=== PATIENT | female | born 1960 | race American Indian/Alaskan Native ===

== ENCOUNTER 2022-03-03 11:39 | Emergency (ER) | payer OTHER ==
[2022-03-03] MEDS ORDERED: SODIUM CHLORIDE 0.9% 1000 ML 1,000 ML ONE (11:45)
[2022-03-03] MEDS ORDERED: diazePAM 10 MG/2 ML SYRINGE ONE (11:55)
[2022-03-03] MEDS ORDERED: SODIUM CHLORIDE 0.9% 1000 ML 1,000 ML IV ONE (12:02)
[2022-03-03] MEDS ORDERED: diazePAM 10 MG/2 ML SYRINGE IV ONE ×3 (12:02→14:00)
--- NOTE | 2022-03-03 12:18 | Emergency Department Report ---
ED General Adult HPI - General Stated complaint: SYNCOPAL EPISODE Time Seen by Provider: 03/03/22 11:44 Source: patient, RN/MD Mode of arrival: Ambulatory Limitations: Other - History of Present Illness Initial comments: 61-year-old female the past medical is a hypertension presents to the hospital after having a near syncopal/dizzy episode with a grief reaction. Patient with here in the ER as a guest and was informed of her 63-year-old brother is in the ED who arrived to the department active cardiopulmonary arrest. Patient was alert without any physical discomfort. Nurse reports that she started to hyperventilate and had a near syncopal episode. Her systolic blood pressure after being placed on a monitor was in the 50s. Patient is awake, varying between crying, hyperventilating, and crying. She will not answer my direct questions. IV lines placed and IV fluids initiated with rapid resolution and hypotension. Valium then provided. Patient did not take her blood pressure medication today - Related Data Home Medications Medication Instructions Recorded Confirmed Last Taken Losartan [Cozaar] 50 mg PO QDAY 03/03/22 03/03/22 Unknown hydroCHLOROthiazide [HCTZ] 25 mg PO QDAY 03/03/22 03/03/22 Unknown Allergies Allergy/AdvReac Type Severity Reaction Status Date / Time No Known Allergies Allergy Unverified 03/03/22 12:22 ED Review of Systems ROS: Stated complaint: SYNCOPAL EPISODE Other details as noted in HPI Comment: All other systems reviewed and negative ED Past Medical Hx - Medications Home Medications: Home Medications Medication Instructions Recorded Confirmed Last Taken Type Losartan [Cozaar] 50 mg PO QDAY 03/03/22 03/03/22 Unknown History hydroCHLOROthiazide [HCTZ] 25 mg PO QDAY 03/03/22 03/03/22 Unknown History ED Physical Exam - Other Other exam information: General: No acute distress Head: Atraumatic Eyes: normal appearance ENT: Moist mucous membranes Neck: Normal appearance, no midline tenderness Chest: Clear to auscultation bilaterally, hyperventilate CV: Regular rate and rhythm Abdomen: Soft, normal bowel sounds, nontender, nondistended, no rebound or guarding Back: Normal inspection Extremity: Normal inspection, full range of motion Neuro: Alert , no facial asymmetry, speech clear, no gross motor sensory deficit Psych: Crying, praying, hysterical Skin: No rash ED Course Vital Signs 03/03/22 03/03/22 03/03/22 12:15 12:16 12:30 Temperature 97.8 F Pulse Rate 66 121 H 63 Respiratory 18 28 H 31 H Rate Blood Pressure 188/103 161/91 Blood Pressure 166/96 [Left] O2 Sat by Pulse 100 99 100 Oximetry 03/03/22 03/03/22 03/03/22 12:46 13:00 13:16 Temperature Pulse Rate 70 67 Respiratory 21 21 16 Rate Blood Pressure 178/112 162/95 159/89 Blood Pressure [Left] O2 Sat by Pulse 98 98 95 Oximetry 03/03/22 03/03/22 03/03/22 13:30 13:46 14:00 Temperature Pulse Rate 66 Respiratory 14 20 11 L Rate Blood Pressure 140/90 142/85 161/100 Blood Pressure [Left] O2 Sat by Pulse 96 98 99 Oximetry 03/03/22 03/03/22 03/03/22 14:16 14:30 14:46 Temperature Pulse Rate 62 61 Respiratory 14 20 12 Rate Blood Pressure 167/94 163/89 177/96 Blood Pressure [Left] O2 Sat by Pulse 99 99 99 Oximetry 03/03/22 03/03/22 03/03/22 15:00 15:16 15:30 Temperature Pulse Rate 66 60 66 Respiratory 11 L 11 L 9 L Rate Blood Pressure 174/110 163/92 164/89 Blood Pressure [Left] O2 Sat by Pulse 91 99 99 Oximetry 03/03/22 03/03/22 03/03/22 15:46 16:00 16:04 Temperature Pulse Rate 67 Respiratory 15 30 H 20 Rate Blood Pressure 178/113 143/111 Blood Pressure 143/111 [Left] O2 Sat by Pulse 99 100 100 Oximetry 03/03/22 03/03/22 03/03/22 16:30 17:00 17:30 Temperature Pulse Rate Respiratory 12 14 13 Rate Blood Pressure 182/103 195/123 187/105 Blood Pressure [Left] O2 Sat by Pulse 99 100 98 Oximetry 03/03/22 03/03/22 03/03/22 17:46 18:00 18:10 Temperature Pulse Rate Respiratory 30 H 13 Rate Blood Pressure 174/100 169/100 Blood Pressure [Left] O2 Sat by Pulse 98 97 100 Oximetry 03/03/22 18:16 Temperature Pulse Rate Respiratory 11 L Rate Blood Pressure 188/98 Blood Pressure [Left] O2 Sat by Pulse 99 Oximetry - Reevaluation(s) Reevaluation #1: 03/03/22 12:51 Patient seen to come down after initial dose of Valium however, once her sister came into the room she became hysterical again crying screaming out her brother's name therefore an additional dose of Valium was provided 03/03/22 18:32 Patient is finally calm, alert, and able to have a conversation. She does not recall hyperventilating ED Medical Decision Making - Lab Data Result diagrams: 03/03/22 12:05 03/03/22 12:05 Lab Results 03/03/22 03/03/22 03/03/22 Range/Units 11:47 12:05 12:05 WBC 4.4 L (4.5-11.0) K/mm3 RBC 3.93 (3.65-5.03) M/mm3 Hgb 10.7 (10.1-14.3) gm/dl Hct 32.4 (30.3-42.9) % MCV 82 (79-97) fl MCH 27 L (28-32) pg MCHC 33 (30-34) % RDW 14.3 (13.2-15.2) % Plt Count 205 (140-440) K/mm3 Lymph % (Auto) 39.3 H (13.4-35.0) % Wheeler % (Auto) 10.6 H (0.0-7.3) % Eos % (Auto) 2.5 (0.0-4.3) % Baso % (Auto) 0.6 (0.0-1.8) % Lymph # (Auto) 1.7 (1.2-5.4) K/mm3 Wheeler # (Auto) 0.5 (0.0-0.8) K/mm3 Eos # (Auto) 0.1 (0.0-0.4) K/mm3 Baso # (Auto) 0.0 (0.0-0.1) K/mm3 Seg Neutrophils % 47.0 (40.0-70.0) % Seg Neutrophils # 2.0 (1.8-7.7) K/mm3 Sodium 136 L (137-145) mmol/L Potassium 3.3 L (3.6-5.0) mmol/L Chloride 103.5 (98-107) mmol/L Carbon Dioxide 19 L (22-30) mmol/L Anion Gap 17 mmol/L BUN 15 (7-17) mg/dL Creatinine 1.0 (0.6-1.2) mg/dL Estimated GFR > 60 ml/min BUN/Creatinine Ratio 15 % Glucose 87 (65-100) mg/dL POC Glucose 81 (70-105) mg/dL Calcium 8.7 (8.4-10.2) mg/dL Total Bilirubin 0.60 (0.1-1.2) mg/dL AST 15 (5-40) units/L ALT 13 (7-56) units/L Alkaline Phosphatase 92 (35-129) units/L Troponin T < 0.010 (0.00-0.029) ng/mL Total Protein 6.5 (6.3-8.2) g/dL Albumin 3.7 L (3.9-5) g/dL Albumin/Globulin Ratio 1.3 % - EKG Data -: EKG Interpreted by Me EKG shows normal: sinus rhythm, ST-T waves (No STEMI, LVH) Rate: normal (69) - Medical Decision Making 61-year-old female presents to the hospital with grief reaction after being informed of her brother's in the ED today. She initially had a vasovagal episode with transient hypotension that then spikes to hypertension with IV fluids. Patient did not take her BP medication today. No signs of hypertensive emergency or end-stage organ damage. Patient was medicated with Valium total 10 mg and provided a dose of her Cozaar. Patient provided p.o. potassium for mild hypokalemia. She was instructed to follow-up with eye doctor, eat a banana a day, and continue her medication as prescribed Critical Care Time: No Critical care attestation.: If time is entered above; I have spent that time in minutes in the direct care of this critically ill patient, excluding procedure time. ED Disposition Clinical Impression: Grief reaction, Chronic hypertension, Vasovagal episode, Hypokalemia Disposition: HOME / SELF CARE / HOMELESS Is pt being admited?: No Does the pt Need Aspirin: No Condition: Stable Instructions: Hypertension (ED), Syncope (ED), Managing Loss, Adult, Near- Syncope, Managing Your Hypertension, Hypokalemia Additional Instructions: Continue your current medications prescribed. Eat a banana a day to prevent low potassium levels. Follow-up your doctor for reassessment. Return if symptoms worsen as indicated by your discharge instructions. Referrals: PRIMARY CARE, [Primary Care Provider] - 3-5 Days Time of Disposition: 18:34
[2022-03-03 12:20] LABS: Basophils % (Auto) 0.6 % (0.0-1.8); Eosinophils # (Auto) 0.1 K/mm3 (0.0-0.4); Eosinophils % (Auto) 2.5 % (0.0-4.3); Hematocrit 32.4 % (30.3-42.9); Hemoglobin 10.7 gm/dl (10.1-14.3); Lymphocytes # (Auto) 1.7 K/mm3 (1.2-5.4); Lymphocytes % (Auto) 39.3 % (13.4-35.0); Mean Corpuscular HGB Conc 33 % (30-34); Mean Corpuscular Volume 82 fl (79-97); Monocytes # (Auto) 0.5 K/mm3 (0.0-0.8); Monocytes % (Auto) 10.6 % (0.0-7.3); Platelet Count 205 K/mm3 (140-440); Red Blood Count 3.93 M/mm3 (3.65-5.03); Red Cell Distribution Width 14.3 % (13.2-15.2)
[2022-03-03 12:50] LABS: Alanine Aminotransferase 13 units/L (7-56); Albumin 3.7 g/dL (3.9-5); BUN/Creatinine Ratio 15; Blood Urea Nitrogen 15 mg/dL (7-17); Calcium 8.7 mg/dL (8.4-10.2); Hemolysis Index 7
[2022-03-03] MEDS ORDERED: POTASSIUM CHLORIDE ER 20 MEQ TAB PO ONE (16:39)
[2022-03-03] MEDS ORDERED: LOSARTAN 50 MG TAB PO ONE (16:50)
--- NOTE | 2022-03-03 17:23 | Electrocardiograph Report ---
[facility] Test Date: 2022-03-03 Test Time: 11:45:28 Pat Name: CECILIO PRIEST Department: Room: Gender: F [employer]: MILTON : 1960 Requested By: DIPESH BURRELL Order Number: [id number] Reading MD: Hedy Perea Measurements Intervals [place] Rate: 69 P: 79 [place]: 165 QRS: 54 QRSD: 91 T: 43 QT: 433 QTc: 464 Interpretive Statements Sinus rhythm Consider left ventricular hypertrophy No previous ECG available for comparison Electronically Signed On 03-03-2022 17:23:31 EDT by Hedy Perea
[2022-03-03] MEDS ORDERED: hydroCHLOROthiazide 25 MG TAB PO ONE (20:23)
[2022-03-03 21:23] VITALS: BP 169/96
== END 2022-03-03 21:15 | disposition home or self-care (01) ==
LOC: ED 11:39
DX: F43.20 Adjustment disorder, unspecified (principal); I10 Essential (primary) hypertension; R55 Syncope and collapse; E87.6 Hypokalemia
CPT/HCPCS: 36415; 80053; 82962; 84484; 85025; 93005; 96361; 96374; 96376; 99284; J3360; J7030; 99283